=== PATIENT | male | born 1990 | race Caucasian/White ===

== ENCOUNTER 2017-05-17 19:11 | Emergency (ER) | payer BC ==
--- NOTE | 2017-05-17 19:40 | EDM.PDOC ---
ED HPI GENERAL MEDICAL PROBLEM - General Chief Complaint: Cardiovascular Problem Stated Complaint: PT HAS TIGHTNESS IN CHEST Time Seen by Provider: 05/17/17 19:29 Source of Information: Reports: Patient History Limitations: Reports: No Limitations - History of Present Illness INITIAL COMMENTS - FREE TEXT/NARRATIVE: HISTORY AND PHYSICAL: History of present illness: [Patient comes to the emergency room complaining of discomfort to the left of his sternum. 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 He describes the sensation as a feeling like being hungry except rather than being in his stomach it is in his left chest. Admits that does not feel like pain but rather strange sensation. He's also had episodes where he can feel his heart beating He denies any feelings of pressure or tightness. No lightheadedness or dizziness. No shortness of breath or difficulty breathing with sensation in his chest. no abdominal pain, nausea, vomiting, constipation, diarrhea. No change in his bowels or urination. He denies swelling in his feet or lower legs. No muscle aches or joint pain. Overall, feels that he is out of shape but otherwise is healthy. Denies hospitalizations and surgeries. He does not take any medications. Has a history of depression and ADD which he has not taken medications for in several years. Review of systems: As per history of present illness and below otherwise all systems reviewed and negative. Past medical history: As per history of present illness and as reviewed below otherwise noncontributory. Surgical history: As per history of present illness and as reviewed below otherwise noncontributory. Social history: No reported history of drug or alcohol abuse. Family history: As per history of present illness and as reviewed below otherwise noncontributory. Physical exam: Gen.: Well-developed well-nourished male in no acute distress. HEENT: Atraumatic, normocephalic. Oral mucous members are pink and moist. Neck is supple. no lymphadenopathy. Lungs: Clear to auscultation, breath sounds equal bilaterally. Chest is nontender with palpation and pain is not reproducible. Heart: S1S2, regular rate and rhythm. No murmur click or rub. Abdomen: Soft, nondistended, nontender. Negative for masses guarding or rebound. No CVA tenderness. Pelvis: Stable nontender. Genitourinary: Deferred. Rectal: Deferred. Extremities: Atraumatic, negative for cords or calf pain. No cyanosis or edema to feet or lower legs. Neurovascular unremarkable. Neuro: Awake, alert, oriented. Motor and sensory unremarkable throughout. Exam nonfocal. Psych: Is pleasant and conversational. Appears mildly anxious with conversation and examination. Diagnostics: [EKG, CBC, CMP, troponin, chest x-ray] Impression: [Palpitations] Plan: [Patient's EKGs reviewed. Rate is 74. Sinus arrhythmia noted. No ST changes. Discussed with patient that his lab results, chest x-ray and EKG are within normal limits. Discussed that palpitations may occurred due to stress, anxiety, or not be well-hydrated. Recommend he follow-up with his PCP who is in [place]. He is in agreement with today's plan. All of his questions are answered and concerns are addressed.] Definitive disposition and diagnosis as appropriate pending reevaluation and review of above. chest pain Pain Score (Numeric/FACES): 1 - Related Data Allergies Allergy/AdvReac Type Severity Reaction Status Date / Time No Known Allergies Allergy Verified 05/17/17 19:21 Home Meds: Home Meds . [No Known Home Meds] 05/17/17 [History] Past Medical History HEENT History: Reports: None Cardiovascular History: Reports: Angina Respiratory History: Reports: None Gastrointestinal History: Reports: None Genitourinary History: Reports: None Musculoskeletal History: Reports: None Neurological History: Reports: None Psychiatric History: Reports: Depression Endocrine/Metabolic History: Reports: None Dermatologic History: Reports: None - Infectious Disease History Infectious Disease History: Reports: Chicken Pox - Past Surgical History Male Surgical History: Reports: None Social & Family History - Family History Family Medical History: Noncontributory - Tobacco Use Years of Tobacco use: 2 Packs/Tins Daily: 1 - Recreational Drug Use Recreational Drug Use: No ED ROS GENERAL - Review of Systems Review Of Systems: ROS reveals no pertinent complaints other than HPI. ED EXAM, GENERAL - Physical Exam Exam: See Below Course - Vital Signs Last Recorded V/S: Last Vital Signs Temp 98.1 F 05/17/17 19:21 Pulse 90 05/17/17 19:21 Resp 16 05/17/17 19:21 BP 140/87 05/17/17 19:21 Pulse Ox 95 05/17/17 19:21 - Orders/Labs/Meds Orders: Active Orders 24 hr Category Date Time Status EKG Documentation Completion [RC] STAT Care 05/17/17 19:48 Active Chest 2V [CR] Stat Exams 05/17/17 19:47 Taken Labs: Laboratory Tests 05/17/17 05/17/17 05/17/17 Range/Units 20:11 20:11 20:11 WBC 10.43 (4.0-11.0) K/uL RBC 4.72 (4.50-5.90) M/uL Hgb 14.0 (13.0-17.0) g/dL Hct 40.6 (38.0-50.0) % MCV 86.0 (80.0-98.0) fL MCH 29.7 (27.0-32.0) pg MCHC 34.5 (31.0-37.0) g/dL RDW Std Deviation 40.3 (28.0-62.0) fl RDW Coeff of Ankita 13 (11.0-15.0) % Plt Count 295 (150-400) K/uL MPV 9.70 (7.40-12.00) fL Neut % (Auto) 68.6 (48.0-80.0) % Lymph % (Auto) 21.2 (16.0-40.0) % Humphreys % (Auto) 8.8 (0.0-15.0) % Eos % (Auto) 0.9 (0.0-7.0) % Baso % (Auto) 0.5 (0.0-1.5) % Neut # (Auto) 7.2 H (1.4-5.7) K/uL Lymph # (Auto) 2.2 (0.6-2.4) K/uL Humphreys # (Auto) 0.9 H (0.0-0.8) K/uL Eos # (Auto) 0.1 (0.0-0.7) K/uL Baso # (Auto) 0.1 (0.0-0.1) K/uL Nucleated RBC % 0.0 /100WBC Nucleated RBCs # 0 K/uL Sodium 141 (136-146) mmol/L Potassium 3.6 (3.5-5.1) mmol/L Chloride 107 (98-110) mmol/L Carbon Dioxide 22 (21-31) mmol/L BUN 20 (6.0-23.0) mg/dL Creatinine 1.1 (0.6-1.5) mg/dL Est Cr Clr Drug Dosing 112.68 mL/min Estimated GFR (MDRD) > 60.0 ml/min Glucose 80 (60-110) mg/dL Calcium 9.7 (8.8-10.8) mg/dL Total Bilirubin 1.0 (0.1-1.5) mg/dL AST 20 (5-40) IU/L ALT 31 (8-54) IU/L Alkaline Phosphatase 87 (40-150) Troponin I < 0.10 (0.0-0.29) NG/ML Total Protein 8.1 H (6.0-8.0) g/dL Albumin 4.8 (3.5-5.0) g/dL Globulin 3.3 (2.0-3.5) g/dL Albumin/Globulin Ratio 1.5 (1.3-2.8) Departure - Departure Time of Disposition: 21:05 Disposition: Home, Self-Care 01 Condition: Good Clinical Impression: Palpitations Referrals: PCP,None [Primary Care Provider] - Forms: ED Department Discharge Additional Instructions: The following information is given to patients seen in the emergency department who are being discharged to home. This information is to outline your options for follow-up care. We provide all patients seen in our emergency department with a follow-up referral. The need for follow-up, as well as the timing and circumstances, are variable depending upon the specifics of your emergency department visit. If you don't have a primary care physician on staff, we will provide you with a referral. We always advise you to contact your personal physician following an emergency department visit to inform them of the circumstance of the visit and for follow-up with them and/or the need for any referrals to a consulting specialist. The emergency department will also refer you to a specialist when appropriate. This referral assures that you have the opportunity for follow-up care with a specialist. All of these measure are taken in an effort to provide you with optimal care, which includes your follow-up. Under all circumstances we always encourage you to contact your private physician who remains a resource for coordinating your care. When calling for follow-up care, please make the office aware that this follow-up is from your recent emergency room visit. If for any reason you are refused follow-up, please contact the [facility] emergency department at and asked to speak to the emergency department charge nurse. [facility] [address] [place] [id number] Follow-up with your primary care provider at the clinic listed above in 48-72 hours. Stay hydrated, get plenty of rest. Return to ER as needed as discussed. - My Orders Last 24 Hours: My Active Orders 05/17/17 19:47 Chest 2V [CR] Stat 05/17/17 19:48 EKG Documentation Completion [RC] STAT - Assessment/Plan Last 24 Hours: My Active Orders 05/17/17 19:47 Chest 2V [CR] Stat 05/17/17 19:48 EKG Documentation Completion [RC] STAT
[2017-05-17 20:38] LABS: CHLORIDE,CL 107 mmol/L (98-110); SODIUM,NA 141 mmol/L (136-146)
[2017-05-17 22:14] VITALS: BP 103/60
--- NOTE | 2017-05-18 14:25 | CR ---
EXAM DATE: 05/17/17 PATIENT'S AGE: 26 Patient: MAULIK MCKEON Facility: [place], [place] Site . Site : 1990 Study: XRay Chest [id number] 8:57:45 PM Ordering Physician: Doctor Reed Final Report: INDICATION: Chest discomfort. Findings: The cardiomediastinal silhouette, lung parenchyma, pulmonary vasculature and pleural surfaces are all normal in appearance. The bony thorax appears intact. Impression: Negative study. Dictated by Richard Jordan MD @ May 17 2017 9:49PM (Electronic Signature) Report Signed by Proxy. REFUGIO
== END 2017-05-17 21:10 | disposition home or self-care (01) ==
LOC: MW.ED 19:11
DX: R00.2 Palpitations (principal)
CPT/HCPCS: 36415; 71020; 71020-26; 80053; 84484; 85025; 93005; 99282; 99285-25